=== PATIENT | female | born 1950 | race Caucasian/White ===

== ENCOUNTER → 2018-08-21 12:43 | Outpatient (BNVA) | payer OTHER, SELFPAY | PROVIDERS: PCP General Practice; Visit Provider Psychiatry & Neurology Neurology | DX: G40.009 Localization-related (focal) (partial) idiopathic epilepsy and epileptic syndromes with seizures of localized onset, not intractable, without status epilepticus (principal); I10 Essential (primary) hypertension | CPT/HCPCS: 99213 ==

== ENCOUNTER 2018-11-05 00:58 | Outpatient (CLI) | payer OTHER, SELFPAY ==
--- NOTE | 2018-11-05 12:27 | DI.MAMMO_ITS ---
SYMPTOM/DIAGNOSIS: SCREENING, Z12.31 MAMMOGRAMS: Mammograms were interpreted according to the usual protocol including computer analysis with CAD system, tomosynthesis and C view imaging. Comparison is made with prior examinations. Breast density, Category B. No suspicious masses or microcalcifications are seen. The well circumscribed nodules in the lower inner quadrant of the right breast are stable. The skin and axilla are unremarkable. IMPRESSION: No evidence for malignancy. Yearly mammography is recommended. Category 2. MQSA ASSESSMENT OF FINDINGS: Negative with benign findings. Category 2. Patient will receive a letter notifying them of these results. BI-RADS category B. There are scattered areas of fibroglandular density.
== END 2018-11-05 01:18 ==
PROVIDERS: PCP General Practice; Visit Provider Nurse Practitioner Family
DX: Z12.31 Encounter for screening mammogram for malignant neoplasm of breast (principal)
CPT/HCPCS: 77063; 77067

== ENCOUNTER 2018-12-14 02:00 | Outpatient (CLI) | payer OTHER, SELFPAY ==
[2018-12-14 11:05] LABS: HCT 41.5 % (36.0-46.0); HGB 14.4 g/dL (12.0-15.5); Mean Corp. HGB Concentration 34.7 g/dL (32.0-36.0); Mean Platelet Volume 10.2 fL (8.0-11.0); Platelet Count 158 x1000/uL (130-400); RBC 4.37 m/cumm (4.00-5.20); RBC Distribution Width 12.1 % (11.7-14.6); White Blood Cell Count 3.73 k/cumm (4.4-10.8)
[2018-12-14 11:17] LABS: Anion Gap 6.3 mmol/L (3-11); BUN 12 mg/dL (7-18); CO2 33.7 mmol/L (21.0-32.0); CREATININE 0.64 mg/dL (0.55-1.02); Chloride 98 mmol/L (98-107); Glucose 97 mg/dL (70-100); Potassium 4.1 mmol/L (3.5-5.1); Sodium 138 mmol/L (136-145)
== END 2018-12-14 02:20 ==
PROVIDERS: PCP Nurse Practitioner Family; Visit Provider General Practice
DX: I10 Essential (primary) hypertension (principal); R73.03 Prediabetes; D61.818 Other pancytopenia; E87.6 Hypokalemia
CPT/HCPCS: 36415; 80051; 82947; 84520; 85027; 82565

== ENCOUNTER 2019-11-11 00:54 | Outpatient (CLI) | payer OTHER, SELFPAY ==
--- NOTE | 2019-11-11 11:30 | DI.MAMMO_ITS ---
EXAM: MAMMO SCREENING CLINICAL HISTORY: SCREENING Z12.39 TECHNIQUE: Mammograms were interpreted according to the usual protocol including computer analysis w [employer] system, tomosynthesis and C-view imaging. COMPARISON: Current examination is compared with previous examinations including October 2018 FINDINGS: The breasts are of moderate density with fairly symmetrical distribution of fibroglandular tissue. N o dominant mass or clumped microcalcification is identified in either breast. Current examination is compared with previous examinations including October 2018 and there has been no gross interval morales nge in appearance in comparison with the previous studies. IMPRESSION: No specific evidence of malignancy at this time. Routine screening examinations are suggested yearly intervals in this age group according to the ACS/ACR guidelines. Category 1, breast density categor y B. BI-RADS Cat 1 - Negative Breast Density - Category B - Scattered areas of fibroglandular density
== END 2019-11-11 01:14 ==
PROVIDERS: PCP Nurse Practitioner Family; Visit Provider Nurse Practitioner Family
DX: Z12.31 Encounter for screening mammogram for malignant neoplasm of breast (principal)
CPT/HCPCS: 77063; 77067

== ENCOUNTER 2019-11-26 15:33 | Outpatient (CLI) | payer OTHER, SELFPAY ==
[2019-11-26 16:16] LABS: HCT 40.1 % (36.0-46.0); Mean Corp. HGB Concentration 34.9 g/dL (32.0-36.0); Mean Corpuscular Hemoglobin 33.3 pg (27.0-33.0); Mean Corpuscular Volume 95.5 fL (80-95); Mean Platelet Volume 9.5 fL (8.0-11.0); Platelet Count 154 x1000/uL (130-400); RBC Distribution Width 11.8 % (11.7-14.6); White Blood Cell Count 2.71 k/cumm (4.4-10.8)
[2019-11-26 18:11] LABS: ALT 32 U/L (14-59); AST 37 U/L (15-37); Cholesterol 204 mg/dL (<200); Triglyceride 59 mg/dL (<150)
== END 2019-11-26 15:53 ==
PROVIDERS: PCP Nurse Practitioner Family; Visit Provider Dermatology
DX: L40.0 Psoriasis vulgaris (principal); Z79.899 Other long term (current) drug therapy
CPT/HCPCS: 36415; 85027; 82465; 84450; 84460; 84478

== ENCOUNTER 2020-02-13 10:22 | Outpatient (REF) | payer OTHER, SELFPAY ==
[2020-02-13 15:54] LABS: ALT 31 U/L (14-59); AST 36 U/L (15-37); Albumin 3.5 g/dL (3.4-5.0); Alkaline Phosphatase 91 U/L (46-116); Anion Gap 4.9 mmol/L (3-11); BUN 19 mg/dL (7-18); Bilirubin, Total 0.6 mg/dL (0.2-1.0); CO2 33.1 mmol/L (21.0-32.0); CREATININE 0.95 mg/dL (0.55-1.02); Calcium 8.8 mg/dL (8.5-10.1); Chloride 96 mmol/L (98-107); Glucose 128 mg/dL (74-106); Potassium 3.8 mmol/L (3.5-5.1); Sodium 134 mmol/L (136-145)
== END 2020-02-13 10:42 ==
LOC: NCHCN 10:22
PROVIDERS: PCP Nurse Practitioner Family; Visit Provider Nurse Practitioner
DX: I10 Essential (primary) hypertension (principal)
CPT/HCPCS: 80053

== ENCOUNTER 2020-03-26 01:18 | Outpatient (CLI) | payer OTHER, SELFPAY ==
[2020-03-26 12:08] LABS: HCT 41.4 % (36.0-46.0); HGB 14.3 g/dL (12.0-15.5); Mean Corp. HGB Concentration 34.5 g/dL (32.0-36.0); Mean Corpuscular Hemoglobin 32.6 pg (27.0-33.0); Mean Corpuscular Volume 94.3 fL (80-95); Platelet Count 160 x1000/uL (130-400); RBC 4.39 m/cumm (4.00-5.20); RBC Distribution Width 12.3 % (11.7-14.6); White Blood Cell Count 3.35 k/cumm (4.4-10.8)
[2020-03-26 13:14] LABS: ALT 34 U/L (14-59); AST 38 U/L (15-37)
[2020-03-26 13:16] LABS: Cholesterol 192 mg/dL (<200); Triglyceride 78 mg/dL (<150)
== END 2020-03-26 01:38 ==
PROVIDERS: PCP Nurse Practitioner; Visit Provider Dermatology
DX: L40.0 Psoriasis vulgaris (principal); Z79.899 Other long term (current) drug therapy
CPT/HCPCS: 36415; 85027; 82465; 84450; 84460; 84478

== ENCOUNTER 2021-02-09 03:38 | Outpatient (CLI) | payer OTHER, SELFPAY ==
[2021-02-15 11:59] LABS: TB Interpretation Negative (Negative); TB1 Ag minus Nil 0.06 IU/ml; TB2 Ag minus Nil 0.03 IU/mL
== END 2021-02-09 03:39 | disposition home or self-care (01) ==
LOC: LBO 03:38
PROVIDERS: PCP Nurse Practitioner; Visit Provider Dermatology
DX: L40.0 Psoriasis vulgaris (principal); Z79.899 Other long term (current) drug therapy; Z11.1 Encounter for screening for respiratory tuberculosis
CPT/HCPCS: 36415; 86480

== ENCOUNTER 2021-03-02 15:05 | Emergency (ER) | payer OTHER, SELFPAY ==
--- NOTE | 2021-03-02 15:08 | W.ED.GENAD ---
Discharge Plan Disposition Patient Disposition: HOME Condition: Stable Discharge Details Clinical Impression: Rash, Psoriasis-like skin disease Primary Care Provider: Stormy Vides ED Provider: Brittni Lee Home Meds and New Rx's Prescriptions: New prednisone 20 mg tablet See Rx Instructions .ROUTE .COMPLEX Qty: 18 RF: 0 cephalexin 500 mg capsule 500 mg PO TID 7 Days Qty: 21 RF: 0 Continued hydrochlorothiazide 12.5 mg capsule 12.5 mg PO DAILY Qty: 30 RF: 1 calcium carbonate-vitamin D3 1 EACH tablet 1 ea PO DAILY RF: 0 multivitamin 1 EACH tablet 1 ea PO DAILY RF: 0 aspirin 81 MG tablet,delayed release (DR/EC) 81 mg PO DAILY RF: 0 Discharge Instructions Instructions: Psoriasis (ED) Additional Instructions: Continue your regular treatments that you are using for your psoriasis as directed. Your antibiotic and steroid prescriptions has been sent electronically to your pharmacy. Call the pharmacy to make sure your prescriptions are ready before pickup. Take the prescriptions as directed. Call Dr. Osborn's office tomorrow morning to discuss if he is okay with you taking a short course of steroids and antibiotics. Follow-up with dermatology for reevaluation. Return immediately to the emergency department if you develop any worsening or new concerning symptoms. Discharge Data Discharge Date/Time-TO BE ENTERED AT DEPARTURE: 03/02/21 16:25 Discharge Physician: Brittni Lee Medical Decision Making 70-year-old female with a history of lupus and diagnosed with psoriasis to her legs 1 year ago followed by dermatology with multiple recent treatment regimens currently on Cosentyx injections presents with continued pain in both legs and pain with ambulation for the past several months. Patient has excoriated raw appearing tissue with surrounding flaky scaly lesions to bilateral lower legs. She states this is unchanged for the past 2 months. She appears comfortable and nontoxic. Discussed with patient that I do not see an indication for labs or imaging at this time as this has been chronic for several months. I discussed that it is advisable to rest and elevate her legs as much as possible and to stay hydrated. She may benefit from a short course of oral steroids and antibiotics. She states her follow-up appointment with Dr. Osborn is in April. She states she feels she does want a second opinion. She states she plans to call Dr. Alcantara occupational therapy supervisor at [facility] for another opinion. Patient's niece had inquired whether lab work or admission to the hospital would be warranted. I discussed that as patient is well-appearing and is being followed by her pcp and occupational therapy supervisor with continuing treatments for her psoriasis, lab work would not change the treatment plan at this time. As she is nontoxic, able to ambulate, there is no indication for admission to the hospital at this time and she understands. She has an appointment with her primary care doctor next week. Usual and customary return precautions given prior to discharge. Medical Records Medical records reviewed: Yes I reviewed the patient's medical records. HPI General Mode of arrival: ambulatory. Date/Time Provider Initiated Documentation: 03/02/21 15:07. Limitations to Documentation: no limitations. Information obtained by: patient. HPI Narrative: Pt is a 70yo F who presents to the ED w/ a c/o rash to her bilateral legs for the past year. Patient states she has been followed by Dr. Osborn for this and was diagnosed with psoriasis and has had multiple treatment regimens including Humira among others, without relief and has recently started Cosentyx injections 2 weeks ago. She states she feels that the symptoms are not improving and she has continued pain and difficulty ambulating due to pain. She states she last saw Dr. Osborn in the past couple months and states her symptoms have not changed significantly since then. She states her legs looked exactly as they do today on her last visit with him and this is when he recommended Cosentyx injections. She denies fever. Related Data Home Medications Medication Instructions Recorded Confirmed calcium carbonate-vitamin D3 1 ea PO DAILY 10/22/13 03/02/21 multivitamin 1 ea PO DAILY 06/20/17 03/02/21 aspirin 81 mg PO DAILY tab-cap 10/30/17 03/02/21 hydrochlorothiazide 12.5 mg capsule 12.5 mg PO DAILY #30 tab-cap 11/11/19 03/02/21 cephalexin 500 mg PO TID 7 Days #21 cap 03/02/21 prednisone See Rx Instructions .ROUTE 03/02/21 .COMPLEX #18 tab Previous Rx's Medication Instructions Recorded hydrochlorothiazide 12.5 mg capsule 12.5 mg PO DAILY #30 tab-cap 11/11/19 cephalexin 500 mg PO TID 7 Days #21 cap 03/02/21 prednisone See Rx Instructions .ROUTE 03/02/21 .COMPLEX #18 tab Allergies Allergy/AdvReac Type Severity Reaction Status Date / Time No Known Drug Allergies Allergy Verified 03/02/21 15:16 Review of Systems All systems reviewed & are unremarkable except as noted in HPI and below Constitutional Constitutional: Reports as per HPI, Denies chills and Denies fever(s) Eyes Eyes: Denies blurry vision ENT Ears, Nose, Mouth, and Throat: Denies dizziness, Denies sore throat and Denies throat swelling Cardiovascular Cardiovascular: Denies chest pain and Denies dyspnea Respiratory Respiratory: Denies cough and Denies dyspnea Gastrointestinal Gastrointestinal: Denies abdominal pain, Denies diarrhea and Denies vomiting Genitourinary Genitourinary: Denies hematuria and Denies dysuria Musculoskeletal Musculoskeletal: Denies back pain and Denies numbness Integumentary/Breasts Skin/Breast: Reports lesions and Reports rash Neurologic Neurologic: Denies dizziness, Denies localized weakness and Denies numbness Allergic/Immunologic Allergic/Immunologic: Denies throat swelling [facility] Medical History (Updated 03/02/21 @ 15:44 by Brittni Lee DO) Discoid lupus erythematosus Eczema (10/23/12) Endometriosis Good hypertension control Hypertension (10/23/12) 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) Partial idiopathic epilepsy with seizures of localized onset, not intractable, without status epilepticus (07/19/17) Surgical History Colonoscopy 2009 Diagnostic Laproscopy secondary to endometriosis 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 Family History Mother Personal history of malignant neoplasm ovarian Father Pulmonary tuberculosis Diabetes Social History (Updated 08/21/18 @ 13:01 by Gabbie Mcconnell LPN) Smoking/Tobacco Use Status: Former Tobacco Use Smoking risk assessment performed?: Yes Alcohol Intake: former Drug use: Never Substance use type: does not use Household members: spouse Do you feel safe at home: Yes History History 0 Para Hx # Term Pregnancies Multiple births Hx # Pregnancies Ectopic pregnancies AB induced Hx Number of Living Children AB spontaneous Exam Const General: cooperative, healthy appearing and no acute distress HENMT Head: normal to inspection Face and sinus: normal facial exam Eyes General: appearance normal, both eyes and all related structures EOM: EOM intact bilaterally Neck Neck: normal visual inspection and No submandibular swelling Lymphatic: no lymphadenopathy noted Chest Chest: normal inspection of the chest and no tenderness Resp Effort & Inspection: normal respiratory effort and able to speak in complete sentences Auscultation: clear to auscultation bilaterally Cardio Rate: regular rate Rhythm: regular rhythm GI Inspection: normal to inspection Palpation: soft, not firm, not rigid and nontender Auscultation: normal bowel sounds Skin Other: Multiple large, white, dried, flaky scales surrounding raw appearing excoriated erythematous and pink tissue noted extensively to b/l lower legs. There are some oozing areas. Neuro General: patient alert, patient awake and patient oriented x3 Cognition: normal cognition Speech: speech normal Motor: muscle tone normal throughout Sensory Exam: no sensory deficits noted Extrem General: normal to inspection, full ROM, capillary refill normal, no calf tenderness bilaterally and no edema Psych Appearance: grossly normal Mental Status: mental status grossly normal Speech and Movement: speech and movement normal Affect: normal affect
[2021-03-02 15:13] VITALS: BP 172/84; PULSE 109; RESP 22; TEMP 36.7; O2SAT 97
--- NOTE | 2021-03-02 20:44 | NUR.NOTE ---
Nursing Note: get appt for [facility] dr glynn for rash on leg 03/02/21
--- NOTE | 2021-03-04 10:56 | CMPROGNOTE_ITS ---
- If Service Date Differs Date of service: 03/04/21 Time of Service: 10:56 Care Management Progress Note Pooja is seen in the ED for a rash of her lower legs. At the request of ED provider, CM coordinates a referral to Dr. Otto Alcantara of [facility] to assist Pooja in obtaining an appointment for a re-evaluation.
== END 2021-03-02 16:25 | disposition home or self-care (01) ==
PROVIDERS: Emergency Provider Physician Assistant; PCP Nurse Practitioner
DX: R21 Rash and other nonspecific skin eruption (principal); L98.8 Other specified disorders of the skin and subcutaneous tissue
CPT/HCPCS: 99283

== ENCOUNTER 2021-03-09 09:38 | Outpatient (REF) | payer OTHER, SELFPAY ==
[2021-03-09 19:55] LABS: ALT 45 U/L (14-59); AST 28 U/L (15-37); Albumin 3.3 g/dL (3.4-5.0); Alkaline Phosphatase 75 U/L (46-116); Anion Gap 6.6 mmol/L (3-11); BUN 18 mg/dL (7-18); Bilirubin, Total 0.4 mg/dL (0.2-1.0); CO2 33.4 mmol/L (21.0-32.0); CREATININE 0.7 mg/dL (0.55-1.02); Calcium 9.4 mg/dL (8.5-10.1); Calculated LDL 114 mg/dL (<100); Chloride 98 mmol/L (98-107); Cholesterol 204 mg/dL (<200); Glucose 114 mg/dL (74-106); HDL Cholesterol 77 mg/dL (40-60); Potassium 3.8 mmol/L (3.5-5.1); Sodium 138 mmol/L (136-145); Total Protein 7.1 g/dL (6.4-8.2); Triglyceride 66 mg/dL (<150)
[2021-03-09 20:17] LABS: Hemoglobin A1C 5.9 % (<5.7)
== END 2021-03-09 09:39 | disposition home or self-care (01) ==
LOC: NCHCN 09:38
PROVIDERS: PCP Nurse Practitioner; Visit Provider Nurse Practitioner
DX: R73.03 Prediabetes (principal); I10 Essential (primary) hypertension
CPT/HCPCS: 80053; 80061; 83036

== ENCOUNTER 2021-08-19 00:47 | Outpatient (CLI) | payer MEDICARE, SELFPAY ==
--- NOTE | 2021-08-19 12:00 | DI.MAMMO_ITS ---
Exam(s) MAMMO SCREENING EXAM: MAMMO SCREENING CLINICAL HISTORY: SCREENING MAMMO FOR BREAST CANCER Z12.39. TECHNIQUE: Bilateral full field digital CC and MLO mammographic images were obtained with 3D tomosyn thesis and utilizing computer aided detection (CAD). COMPARISON: Prior mammograms dating back to 2012, the most recent being October 2019. FINDINGS: There are no CAD designations. Asymmetric density in the right breast located 5 cm in from the nipple is unchanged from at least 101 5 and therefore benign This is a slightly lobulated nodule with a single microcalcifications therein. It measures approxima tely 8 x 3 millimeters. I suspect that it is probably a benign fibroadenoma, given its lack of hoang e from 2013. There is no significant architectural distortion nor skin thickening-retraction. IMPRESSION: Stable benign-appearing findings. No radiographic evidence of malignancy. BI-RADS Category 2 - Benign Findings Breast Density - Category B - Scattered areas of fibroglandular density Breast density Category C or D implies that the patient has dense breast tissue. Dense breast tissue can make it harder to find cancer on a mammogram. Dense breast tissue is also associated with an incr eased risk of breast cancer. This information about the result of the mammogram report was provided to the patient to raise their awareness. Use this report when you speak with the patient about their risks for breast cancer, which includes their family history. At that time, you may recommend additional screening tests (Ultrasoun d or MRI) as these tests may add significant information. A negative radiographic report should not delay biopsy if a dominant or clinically suspicious mass is present. Up to ten percent of cancers are not identified on mammography. A negative report may reinforce clinical impression. Adenosis and dense breasts may obscure an underlying neoplasm. False positive reports average 6 to 10%. Patient will receive a letter notifying them of these results.
== END 2021-08-19 01:07 ==
PROVIDERS: PCP Nurse Practitioner; Visit Provider Nurse Practitioner
DX: Z12.31 Encounter for screening mammogram for malignant neoplasm of breast (principal); R92.8 Other abnormal and inconclusive findings on diagnostic imaging of breast
CPT/HCPCS: 77063; 77067

== ENCOUNTER → 2021-09-30 10:56 | Outpatient (BNVA) | payer MEDICARE, SELFPAY | PROVIDERS: PCP Nurse Practitioner; Referring Provider Nurse Practitioner; Visit Provider Physical Therapy Assistant | DX: Z12.11 Encounter for screening for malignant neoplasm of colon (principal) ==

== ENCOUNTER 2021-10-08 01:37 | Outpatient (CLI) | payer MEDICARE, SELFPAY ==
[2021-10-08 11:10] LABS: Source Nasal/Nares
[2021-10-08 13:51] LABS: COVID-19 PCR Negative (Negative)
== END 2021-10-08 01:38 | disposition home or self-care (01) ==
LOC: LBO 01:37
PROVIDERS: PCP Family Medicine; Visit Provider Surgery
DX: Z20.822 Contact with and (suspected) exposure to COVID-19 (principal)
CPT/HCPCS: 87635

== ENCOUNTER 2021-10-11 07:01 | Day surgery (SDC) | payer MEDICARE, SELFPAY ==
--- NOTE | 2021-10-11 06:42 | PDOC.DSDIS_ITS ---
Discharge Plan Disposition Patient Disposition: HOME Condition: Good Discharge Details Reason For Visit: Colonoscopy Attending Provider: Marija Dodson Primary Care Provider: YURI ESCALANTE Home Meds and New Rx's Prescriptions: Continued hydrochlorothiazide 12.5 mg capsule 25 mg PO DAILY Qty: 30 RF: 1 aspirin 81 MG tablet,delayed release (DR/EC) 81 mg PO DAILY RF: 0 Cosentyx 150 mg/mL syringe 300 mg subcut Q4W RF: 0 One-A-Day Women's 50 Plus 400-20 mcg tablet 1 tab PO DAILY RF: 0 clobetasol 0.05 % cream 1 applic topical BID RF: 0 Discontinued bisacodyl [Dulcolax (bisacodyl)] 5 mg tablet,delayed release (DR/EC) 5 mg PO ONCE Qty: 4 RF: 0 polyethylene glycol 3350 17 gram/dose powder 17 g PO ONCE Qty: 238 RF: 0 Discharge Instructions Additional Instructions: Findings: Normal colon Follow up: as needed Please call if you develop: fevers >101.5 Nausea or Vomiting Abdominal pain that is not transient Rectal bleeding that is more then a tbsp A hard abdomen and inability to pass gas DAY SURGERY UNIT POST ENDOSCOPY INSTRUCTIONS Instructions for everyone who is given Anesthesia: For your safety, please do the following for the next 24 Hours: a. Do not drive or operate dangerous equipment b. Do not drink alcohol beverages or use any recreational drugs for the first 24 hours or while taking pain medications. The medications in your body may have a reaction that can be dangerous. c. Do not make any important decisions or sign any important papers 1. Generally there are no restrictions on your activity after a day or so has gone by, but you may feel a bit fatigued for a few days. 2. After you arrive home you may have a light meal and return to a normal diet as you can tolerate it without feeling sick to your stomach. 3. After surgery, you may feel pain or discomfort. This should be only arevalo sient, but if it persists please contact your doctor. 4. If there are any questions regarding the findings of your procedure, please feel free to contact your doctor. 6. If you are unable to contact your doctor with a problem, contact the hospital at [phone]. 7. Continue all your regular medications unless directed otherwise. I understand the above instructions and have no questions. Signature of Patient or Responsible Adult Escort Date/Time Name of Responsible Adult Escort Signature of Nurse Date/Time Activity:: Activity as Tolerated Diet:: As Tolerated Discharge Orders Discharge Orders: Discharge Order (Routine); Ordered 10/11/21 Ordered By: Marija Dodson
--- NOTE | 2021-10-11 06:42 | W.COLOREPORT ---
Colonoscopy Report Date of procedure: 10/11/21 Pre-op diagnosis general: Colon Cancer Screening Post-op diagnosis procedure note: same Procedure: Colonoscopy Surgeon: Marija Dodson Anesthesia Type: General:No Airway (Chris Tabares CRNA) Estimated blood loss (mL): 3 Pathology: none sent Complications: None Disposition: same day Indications: The patient is here for Colonoscopy pre-op. Her last screening was in 2009 and was unremarkable. She has no family history of colon cancer. She has not had any bowel habit changes. -Discussed colonoscopy bowel prep as well as the procedure. Discussed possible complications of the procedure to include bleeding, pain, perforation, missed small lesion/polyp, sore throat, aspiration and adverse reaction to the medications. Questions were answered to patient?s satisfaction. No guarantees were implied or given. Prep: Miralax/Dulcolax Procedure Start Time: 08:09 Procedure End Time: :24 Retraction Time: 6 minutes Findings: Normal colon Procedure Description: After informed consent was obtained the patient was taken to the procedure room and placed in a left decubitous position. Monitors were applied and a time out was done. The patients name, date of , procedure, allergies to medications and metal in their body was reviewed. The patient was then sedated. Once sedated and comfortable a rectal exam was done. External exam was normal. Internal exam revealed a normal sphincter tone and no palpable masses. The scope was then introduced and retro-flexed. No internal hemorrhoids, polyps or masses were identified on retro-flexion. The scope was then advanced to the cecum without difficulty. The ileocecal vlave and appendiceal orifice were identified. The prep was good. The scope was then slowly retracted over 6 minutes back into the rectum. There were no Polyps and there was no diverticulosis noted. The scope was removed and the patient was woken up and taken back to Same day surgery in stable condition. The patient tolerated the procedure well and there were no immediate complications. Follow up: The patient should follow up as needed, unless they develop changes in bowel habits or other new gastrointestinal complaints.
[2021-10-11 07:21] VITALS: BP 145/82; PULSE 83; RESP 16; TEMP 36.3; O2SAT 99
--- NOTE | 2021-10-11 07:38 | W.ANESPRE ---
General Info Date of Service Date Performed: 10/11/21 Height: 5 ft 2 in Weight: 64.9 kg Body Mass Index (BMI): 26.2 Surgical Procedure: Operation Date: 10/11/21 08:35 Proposed Procedures Side Surgeon p Colonoscopy Marija Dodson MD Meds Allergies and Home Medications Allergies Allergy/AdvReac Type Severity Reaction Status Date / Time No Known Drug Allergies Allergy Verified 10/11/21 07:17 Home Medication Medication Instructions Recorded aspirin 81 mg PO DAILY tab-cap 10/30/17 clobetasol 0.05 % topical cream 1 applic TOPICAL BID 04/13/21 kgjnqdqjztua-golsqjmq-wcvebup-folic 1 tab PO DAILY 04/13/21 acid 400 mcg-vit K1 20 mcg tablet secukinumab 150 mg/mL subcutaneous 300 mg SUBCUT Q4W 04/13/21 syringe hydrochlorothiazide 12.5 mg capsule 25 mg PO DAILY #30 tab-cap 09/24/21 bisacodyl 5 mg tablet,delayed 5 mg PO ONCE #4 tab 09/30/21 release polyethylene glycol 3350 17 17 g PO ONCE #238 g 09/30/21 gram/dose oral powder Current Visit Medications: Current Medications Generic Name Dose Route Start Last Admin Trade Name Freq PRN Reason Stop Dose Admin Hyoscyamine Sulfate 0.125 mg 10/11/21 06:43 Hyoscyamine 0.125 Mg Sl/Oral/Chew SL DIRECTED PRN Ringer's Solution 1,000 mls @ 80 mls/hr 10/11/21 06:00 IV 11/07/21 23:59 INF[facility]ION [facility] IV Miscellaneous Supplies 1 each 10/11/21 06:00 Iv Access IV 11/07/21 23:59 DIRECTED [facility] Ondansetron HCl 4 mg 10/11/21 06:43 Ondansetron 4 Mg/2 Ml Vial IVP Q4H PRN PRN Nausea / Vomiting Sodium Chloride 0 ml 10/11/21 06:00 Normal Saline Flush 10 Ml Syr IV 11/07/21 23:59 PRN PRN Sodium Chloride 0 ml 10/11/21 06:00 Normal Saline 10 Ml Vial IJ 11/07/21 23:59 DIRECTED PRN Sterile Water 0 ml 10/11/21 06:00 Water,Injection,Sterile 10 Ml Vial IJ 11/07/21 23:59 DIRECTED PRN PFSH Active Problems Active Problems: Problem Status Onset Code Prediabetes R73.03 Screening for colon cancer Z12.11 Partial idiopathic epilepsy with seizures of localized onset, not intractable, without status epilepticus 07/19/17 G40.009 Medical History Medical History Depression Eczema (10/23/12) Endometriosis Good hypertension control Hypertension (10/23/12) 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) Psoriasis-like skin disease Rash Surgical History Surgical History Colonoscopy 2010 Diagnostic Laproscopy secondary to endometriosis Lazer to L leg discoid lupus lesion 2010 Tobacco Smoking/Tobacco Use Status: Former Tobacco Use Alcohol Alcohol Intake: current Alcohol intake frequency: holidays/special occasions only Alcohol type: wine Substance Use Substance use: Never Substance use type: does not use Prental History History 0 Para Hx # Term Pregnancies Multiple births Hx # Pregnancies Ectopic pregnancies AB induced Hx Number of Living Children AB spontaneous Vital Signs and Lab Results Vital Signs Most Recent Vital Signs in EMR: Most Recent Vital Signs Temp Pulse Resp BP Pulse Ox 36.3 C L 83 16 145/82 H 99 10/11/21 07:21 10/11/21 07:21 10/11/21 07:21 10/11/21 07:21 10/11/21 07:21 Lab Results Blood Type / Crossmatch: No Data to Display Complete Blood Count: No Data to Display Complete Metabolic Panel: No Data to Display Liver Function Panel: No Data to Display Coagulation Panel: No Data to Display Cardiac Panel: No Data to Display Arterial Blood Gas: No Data to Display Venous Blood Gas: No Data to Display Pancreas Panel: No Data to Display Thyroid Panel: No Data to Display Infectious Disease: Coronavirus (COVID-19)(PCR) Negative (Negative) 10/08/21 09:23 10/08/21 Coronavirus 2019 Source Nasal/Nares 10/08/21 09:23 10/08/21 Blood Cultures: No Data to Display Toxicology Panel: No Data to Display Anesthesia Assessment and Plan Anesthesia History Personal History: No History of Anesthesia Complications Family History: No Family History of Anesthesia Complications Exercise Tolerance Exercise Tolerance: Metabolic Equivalents>4 Pertinent Negatives Pertinent Negatives: No Symptoms of GERD Cardiac & Pulmonary Exam Cardiac Exam: Normal S1/S2 Heart Sounds Pulmonary Exam: Clear Bilateral Breath Sounds Implantable Cardiac Device Does patient have a Pacemaker or an ICD?: No Airway Exam Known Difficult Airway: No Mallampati Class: 1 Mouth Opening: Normal (> 3cm) Thyromental Distance: Greater than 3 cm Neck Range of Motion: Full ROM Neck Circumference: Normal Teeth Condition: Loose or Chipped (Upper loose teeth, discussed possible loss) ASA Classification ASA Score: ASA 2 Emergency Case?: No NPO Status NPO Status: NPO Clears >2 hours, Solids >8 hours Anesthesia Plan Resuscitation Status: Full Code Anesthesia Technique: General Anesthesia Airway Planned: Natural Airway Monitors Used: Standard Monitors
[2021-10-11 07:53] VITALS: BMI 26.2
[2021-10-11] MEDS: Lactated Ringers 1,000 ML 80 ML IV (07:53)
[2021-10-11 08:29] VITALS: BP 99/62; PULSE 59; RESP 16; TEMP 36.3; O2SAT 98
--- NOTE | 2021-10-11 08:57 | W.ANESPOSTOP ---
Postoperative Evaluation Date, Time and Location Date Performed: 10/11/21 Time Performed: 08:57 Patient Location: Day Surgery Unit Vital Signs Most Recent Imported Vital Signs: Most Recent Vital Signs Temp Pulse Resp BP Pulse Ox 36.3 C L 59 L 16 99/62 L 98 10/11/21 08:29 10/11/21 08:29 10/11/21 08:29 10/11/21 08:29 10/11/21 08:29 Pain Score Most Recent Pain Score: Most Recent Pain Score Pain Level 0 10/11/21 08:29 Assessment Mental Status: Awake (Alert & Oriented to Patient Baseline) Airway and Respiratory Function: Patent airway with normal (patient baseline) respiratory exam Cardiovascular Function: Hemodynamically Stable Hydration Status: Adequately Hydrated Nausea & Vomiting: No Nausea or Vomiting Pain: Pt. Denies Any Pain Peripheral Nerve Block: Patient did not receive a nerve block
[2021-10-11 08:59] VITALS: BP 128/61; PULSE 58; RESP 16; TEMP 36.3; O2SAT 100
== END 2021-10-11 09:20 | disposition home or self-care (01) ==
PROVIDERS: PCP Nurse Practitioner Family; Visit Provider Surgery
PROC: 0DJD8ZZ Inspection of Lower Intestinal Tract, Via Natural or Artificial Opening Endoscopic (ICD-10-PCS; CPT 45378; principal; 2021-10-11 08:30)
DX: Z12.11 Encounter for screening for malignant neoplasm of colon (principal); I10 Essential (primary) hypertension; F32.A Depression, unspecified
CPT/HCPCS: G0121

== ENCOUNTER 2022-07-26 11:34 | Outpatient (REF) | payer MEDICARE, SELFPAY ==
[2022-07-26 15:46] LABS: Absolute Basophil Count 0.05 10^3/uL (0.0-0.2); Absolute Eosinophil Count 0.07 10^3/uL (0.0-0.7); Absolute Lymphocyte Count 0.55 10^3/uL (1.2-3.4); Anion Gap 4.9 mmol/L (3-11); BUN 16 mg/dL (7-18); Basophils % 1.2; CO2 34.1 mmol/L (21.0-32.0); CREATININE 0.7 mg/dL (0.55-1.02); Calcium 8.9 mg/dL (8.5-10.1); Chloride 94 mmol/L (98-107); Eosinophils % 1.6; Estimated GFR 92.41 (mL/min/1.73m2); Glucose 98 mg/dL (74-106); HCT 41.5 % (36.0-46.0); HGB 14.5 g/dL (11.2-15.7); Lymphocytes % 12.9; MCH 32.7 pg (27.0-33.0); MCHC 34.9 % (32.0-36.0); MCV 94 fL (80-95); MPV 10.2 fL (8.0-11.0); Monocytes % 9.4; Neutrophils % 74.9; Platelet Count 202 10^3/uL (130-400); Potassium 4.1 mmol/L (3.5-5.1); RBC 4.43 10^6/uL (3.93-5.22); RDW 11.7 % (11.7-14.6); Sodium 133 mmol/L (136-145); WBC 4.27 10^3/uL (4.4-10.8)
[2022-07-26 16:15] LABS: Hemoglobin A1C 5.5 % (<5.7)
== END 2022-07-26 11:35 | disposition home or self-care (01) ==
LOC: NCHCN 11:34
PROVIDERS: PCP Nurse Practitioner; Visit Provider Nurse Practitioner Family
DX: R73.03 Prediabetes (principal); L40.9 Psoriasis, unspecified; I10 Essential (primary) hypertension; Z00.00 Encounter for general adult medical examination without abnormal findings; Z51.81 Encounter for therapeutic drug level monitoring
CPT/HCPCS: 80048; 83036; 85025

== ENCOUNTER 2023-07-31 14:07 | Outpatient (REF) | payer MEDICARE, SELFPAY ==
[2023-07-31 16:00] LABS: ALT 36 U/L (14-59); AST 39 U/L (15-37); Albumin 3.4 g/dL (3.4-5.0); Alkaline Phosphatase 99 U/L (46-116); Anion Gap 7.3 mmol/L (3-11); BUN 12 mg/dL (7-18); Bilirubin, Total 0.8 mg/dL (0.2-1.0); CO2 31.7 mmol/L (21.0-32.0); CREATININE 0.7 mg/dL (0.55-1.02); Calcium 9.5 mg/dL (8.5-10.1); Calculated LDL 114 mg/dL (<100); Chloride 95 mmol/L (98-107); Cholesterol 204 mg/dL (<200); Estimated GFR 91.83 (mL/min/1.73m2); Glucose 126 mg/dL (74-106); HDL Cholesterol 78 mg/dL (40-60); Sodium 134 mmol/L (136-145); TSH (W/Ref FT4) 4.35 uIU/mL (0.36-3.74); Total Protein 7.6 g/dL (6.4-8.2); Triglyceride 60 mg/dL (<150); Vitamin B12 949 pg/mL (193-986)
[2023-07-31 16:34] LABS: FREE T4 0.94 ng/dL (0.76-1.46)
== END 2023-07-31 14:08 | disposition home or self-care (01) ==
LOC: NCHCN 14:07
PROVIDERS: PCP Nurse Practitioner; Visit Provider Nurse Practitioner Family
DX: I10 Essential (primary) hypertension (principal); R73.03 Prediabetes; Z79.899 Other long term (current) drug therapy
CPT/HCPCS: 80053; 80061; 82607; 84439; 84443

== ENCOUNTER → 2024-01-23 10:28 | Outpatient (BNVA) | payer MEDICARE, SELFPAY | PROVIDERS: PCP Nurse Practitioner Family; Referring Provider Nurse Practitioner Family; Visit Provider Podiatrist | DX: B35.1 Tinea unguium (principal); L60.2 Onychogryphosis; L60.3 Nail dystrophy; M79.676 Pain in unspecified toe(s); B07.0 Plantar wart; L84 Corns and callosities | CPT/HCPCS: 11305; 11721; 99214 ==

== ENCOUNTER → 2024-02-14 09:45 | Outpatient (BNVA) | payer MEDICARE, SELFPAY | PROVIDERS: PCP Nurse Practitioner Family; Referring Provider Nurse Practitioner Family; Visit Provider Podiatrist | DX: B35.1 Tinea unguium; L60.2 Onychogryphosis; L60.3 Nail dystrophy; L84 Corns and callosities | CPT/HCPCS: 99214 ==

== ENCOUNTER → 2024-05-28 10:28 | Outpatient (BNVA) | payer MEDICARE, SELFPAY | PROVIDERS: PCP Nurse Practitioner Family; Referring Provider Nurse Practitioner Family; Visit Provider Podiatrist | DX: B35.1 Tinea unguium (principal); L60.2 Onychogryphosis; L60.3 Nail dystrophy; M79.674 Pain in right toe(s); L84 Corns and callosities; L93.0 Discoid lupus erythematosus; I73.89 Other specified peripheral vascular diseases; M79.675 Pain in left toe(s) | CPT/HCPCS: 11721 ==

== ENCOUNTER 2024-06-05 17:33 | Emergency (ER) | payer MEDICARE, SELFPAY ==
[2024-06-05 17:35] VITALS: BP 163/80; PULSE 83; RESP 16; TEMP 36.4; O2SAT 98
--- NOTE | 2024-06-05 19:31 | ED.GENADUL_ITS ---
Discharge Plan Disposition Patient Disposition: Home Condition: Stable Discharge Details Clinical Impression: Paronychia of finger of left hand Primary Care Provider: YURI ESCALANTE ED Provider: Lucrecia Koch Home Meds and New Rx's Prescriptions: New cephalexin 500 mg capsule 500 mg PO BID 10 Days Qty: 20 0RF Rx Instructions: Take 1 tablet twice daily for the next 10 days. No Action hydrochlorothiazide 12.5 mg capsule 25 mg PO DAILY Qty: 30 1RF ketoconazole 2 % cream 1 applic topical DAILY Qty: 120 6RF Rx Instructions: Apply to toenails once daily folic acid 1 mg tablet 1 mg PO DAILY Cosentyx 150 mg/mL syringe 300 mg subcut Q4W Rx Instructions: start 4 wks after last weekly dose;inject [id number] doses each in different thigh/upper arm/abdominal areas One-A-Day Women's 50 Plus 400-20 mcg tablet 1 tab PO DAILY Discharge Instructions Instructions: Cellulitis (Skin Infection), Adult ED, Paronychia ED Additional Instructions: Please take the antibiotics as directed twice daily with yogurt or a probiotic. Continue with warm soapy water soaks once daily for the next 3 to 5 days. Keep clean and dry. Please be seen again for any worsening swelling, increased redness or return of the abscess after 3 days of the antibiotics. Follow up with urgent care or primary care provider in 3-5 days for a recheck. Return to ED sooner if any worsening or concerns. Please take Tylenol or Ibuprofen with food every 4-6 hours as needed for pain and swelling. Referrals: YURI ESCALANTE, HOTEL DESK CLERK [Primary Care Provider] - 1 week HPI General Mode of arrival: ambulatory . Date/Time Provider Initiated Documentation: 06/05/24 17:34 . Limitations to Documentation: no limitations . Information obtained by: patient, family, RN notes reviewed and old records reviewed . HPI Narrative: 74-year-old female presents to the ER with a chief complaint of left finger distal tip cellulitis with purulent drainage noted. Does appear to be a paronychia started 1 week ago and has been worsening. Denies any fever or chills. Does have some swelling noted and erythema. Past medical history includes depression, hypertension endometriosis. Related Data Home Medications ?Medication ?Instructions ?Recorded ?Confirmed [id number]-abpduhs-folic 1 tab PO DAILY 04/13/21 05/28/24 acid 400 mcg-vit K1 20 mcg tablet (One-A-Day Women's 50 Plus) secukinumab 150 mg/mL subcutaneous 300 mg subcut Q4W 04/13/21 05/28/24 syringe (Cosentyx) hydrochlorothiazide 12.5 mg capsule 25 mg (2 x 12.5 mg) PO DAILY #30 09/24/21 05/28/24 tab-caps ketoconazole 2 % topical cream 1 applic topical DAILY #120 grams 01/23/24 05/28/24 folic acid 1 mg tablet 1 mg PO DAILY 05/24/24 05/28/24 cephalexin 500 mg capsule 500 mg PO BID Finger Cellulits 06/05/24 days #20 caps Previous Rx's ?Medication ?Instructions ?Recorded hydrochlorothiazide 12.5 mg capsule 25 mg (2 x 12.5 mg) PO DAILY #30 09/24/21 tab-caps ketoconazole 2 % topical cream 1 applic topical DAILY #120 grams 01/23/24 cephalexin 500 mg capsule 500 mg PO BID Finger Cellulits 06/05/24 days #20 caps Allergies Allergy/AdvReac Type Severity Reaction Status Date / Time haloperidol (From Haldol) Allergy Severe Unknown Verified 06/05/24 17:39 lamotrigine (From Lamictal) Allergy Severe Unknown Verified 06/05/24 17:39 phenytoin (From Dilantin) Allergy Severe Unknown Verified 06/05/24 17:39 General Stated Complaint: Cellulitis AHSAN: 4 Review of Systems Musculoskeletal Musculoskeletal: Reports as per HPI, Reports arthralgias and Reports joint swelling Integumentary/Breasts Skin/Breast: Reports erythema, Reports skin pain and Reports skin swelling Exam Extrem Left upper extremity: hand Details: tenderness and swelling Hand/finger images: 2 1. Purulent drainage noted, surrounded by induration and erythema. Concentrated to the dorsal aspect of the finger. Course Vital Signs Vital signs: Vital Signs Temperature 36.4 C L 06/05/24 17:35 Pulse 83 06/05/24 17:35 Respiratory Rate 16 06/05/24 17:35 Blood Pressure 163/80 H 06/05/24 17:35 Pulse Oximetry 98 06/05/24 17:35 Temperature 36.4 C L 06/05/24 17:35 Temperature Source Temporal Artery Scan 06/05/24 17:35 Pulse 83 06/05/24 17:35 Respiratory Rate 16 06/05/24 17:35 Blood Pressure 163/80 H 06/05/24 17:35 Blood Pressure Position Sitting 06/05/24 17:35 Pulse Oximetry 98 06/05/24 17:35 Oxygen Delivery Method Room Air 06/05/24 17:35 Oxygen Flow Rate 0 06/05/24 17:35 Pain Level 3 06/05/24 17:35 Procedures Abscess I/D Site: Hand (Left index finger) Side (if applicable): Left Sedation/analgesia: None Technique: Needle Aspiration Amount of fluid expressed (mL): 1 Irrigation: No Packing used?: None Medical Decision Making 74-year-old female presents to the ER with a chief complaint of left finger distal tip cellulitis with purulent drainage noted. Does appear to be a paronychia started 1 week ago and has been worsening. Denies any fever or chills. Does have some swelling noted and erythema. Past medical history includes depression, hypertension endometriosis. Left finger paronychia, purulent drainage noted at the nailbed, puncture with 18-gauge needle and expressed moderate amount of purulent drainage. Patient tolerated well, will give cephalexin and instruct on continuing warm soapy water soaks and follow-up with urgent care here or PCP. Instructed to give the antibiotics get 3 days to return here if any worsening. This text was generated using [employer] system, please disregard any oddities of phrase or misspellings. Quality:SDOH Health Related Social Needs: 2 No Data to Display PFSH All Active Problems (Updated 06/05/24 @ 19:35 by Lucrecia Koch NP) Paronychia of finger of left hand (Acute) PVD (peripheral vascular disease) (Chronic) Eczema (Acute 10/23/12) Corns and callosities (Acute) Plantar verruca (Acute) Pain around toenail (Acute) Nail dystrophy (Acute) Onychogryphosis (Acute) Onychomycosis (Acute) Normal colonoscopy (Acute ~09/2021) Prediabetes (Acute) no ;longer an issue Partial idiopathic epilepsy with seizures of localized onset, not intractable, without status epilepticus (Acute 07/19/17) not since 2016 Medical History Depression Screening for colon cancer Psoriasis-like skin disease Rash 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) Hypertension (10/23/12) Endometriosis Good hypertension control Surgical History 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 Diagnostic Laproscopy secondary to endometriosis Colonoscopy 2021 2009 Family History Mother Personal history of malignant neoplasm ovarian Father Pulmonary tuberculosis Diabetes Social History Smoking/Tobacco Use Status: Former Tobacco Use Quit Date: 09/18/79 Smoking risk assessment performed?: Yes Alcohol Intake: current Alcohol Intake frequency: holidays/special occasions only Alcohol type: wine Drug use: Never Substance use type: does not use Household members: spouse Housing: house Do you feel safe at home: Yes Do you feel safe in your relationship?: Yes History History 2 0 Para Hx # Term Pregnancies Multiple births Hx # Pregnancies Ectopic pregnancies AB induced Hx Number of Living Children AB spontaneous
[2024-06-05] MEDS: Bacitracin 1 PACKET TP (19:38)
[2024-06-05] MEDS: Cephalexin 500 MG CAP, 2 CAPS/BTL PO (19:39)
[2024-06-05] MEDS: Cephalexin 500 MG CAP PO (19:39)
[2024-06-05 19:41] VITALS: BP 164/98; PULSE 81; RESP 16; TEMP 36.8; O2SAT 96
== END 2024-06-05 19:37 | disposition home or self-care (01) ==
PROVIDERS: Emergency Provider Registered Nurse Emergency; PCP Nurse Practitioner Family
DX: L03.012 Cellulitis of left finger (principal)
CPT/HCPCS: 10021; 10060; 99281; 99283

== ENCOUNTER 2024-09-23 10:27 | Emergency (ER) | payer MEDICARE, SELFPAY ==
[2024-09-23 10:36] VITALS: BP 148/77; PULSE 102; RESP 16; TEMP 37; O2SAT 97
[2024-09-23 11:50] VITALS: BP 136/86; PULSE 88; RESP 15; O2SAT 96
[2024-09-23 11:55] LABS: Influenza A PCR Negative (Negative); Influenza B PCR Negative (Negative); RSV PCR Negative (Negative)
[2024-09-23 12:01] LABS: COVID-19 PCR Positive (Negative); Source Nasopharynx
--- NOTE | 2024-09-23 12:10 | DI.RAD_ITS ---
Exam(s) XR CHEST 2V PA LATERAL EXAM: XR CHEST 2V PA LATERAL CLINICAL HISTORY: shortness of breath, cough TECHNIQUE: 2D digital imaging was performed of the chest. Two images were obtained. PA and lateral views were obtained. COMPARISON: CR PORTABLE CHEST ONE VIEW from 04/21/2017 FINDINGS: There is poor inspiration. MEDIASTINUM: Normal. HEART: Normal. PULMONARY VASCULATURE: Normal. LUNGS: Mild prominence of the interstitium throughout the lungs. No focal consolidating infiltrate is seen. PLEURAL SPACE: There is blunting of the right costophrenic angle which may represent a small pleural effusion. No left pleural effusion. No pneumothorax. BONE:Within normal limits for the patient's age. OTHER FINDINGS:Normal. IMPRESSION: Mild interstitial prominence. This may be chronic, but acute interstitial edema or pneumonia cannot b e excluded. Please correlate clinically. No focal consolidating infiltrates are seen. DATA REPOSITORY: RADIATION DOSE DELIVERED:
--- NOTE | 2024-09-24 09:05 | W.ED.GENAD ---
Discharge Plan Disposition Patient Disposition: Home Discharge Details Clinical Impression: COVID-19 Primary Care Provider: YURI ESCALANTE ED Provider: Saige James Home Meds and New Rx's Prescriptions: New doxycycline hyclate 100 mg tablet 100 mg PO BID 7 Days Qty: 14 0RF prednisone 20 mg tablet 40 mg PO ONCE Qty: 10 0RF Continued hydrochlorothiazide 12.5 mg capsule 25 mg PO DAILY Qty: 30 1RF ketoconazole 2 % cream 1 applic topical DAILY Qty: 120 6RF Rx Instructions: Apply to toenails once daily Cosentyx 150 mg/mL syringe 300 mg subcut Q4W Rx Instructions: start 4 wks after last weekly dose;inject [id number] doses each in different thigh/upper arm/abdominal areas One-A-Day Women's 50 Plus 400-20 mcg tablet 1 tab PO DAILY memantine 5 mg tablet 10 mg PO BID Patient Comments: 2 in morning, 1 at night Discharge Instructions Instructions: COVID-19 ED Additional Instructions: Take the antibiotics as prescribed Yogurt daily while on antibiotics Prednisone as prescribed Inhaler 2 puffs every 4-6 hours as needed for cough, wheeze, shortness of breath Please return with fever, chills, worsening symptoms You are positive for COVID-19, please refer to review information attached Referrals: YURI ESCALANTE, REAL ESTATE INVESTMENT ANALYST [Primary Care Provider] - 3 days Discharge Data Discharge Date/Time-TO BE ENTERED AT DEPARTURE: 09/23/24 12:55 HPI General Date/Time Provider Initiated Documentation: 09/23/24 10:31. HPI Narrative: This 74-year-old female with history of dementia presents with with report of cough and cold symptoms for the past 10 days. [place] and became sick shortly thereafter. Patient denies any chest pain has been does not endorse any fevers. There have been no falls patient is not weak her . She denies any specific complaints. They are more concerned regarding the longevity of illness. Related Data Home Medications ?Medication ?Instructions ?Recorded ?Confirmed [id number]-rkijqqcw-epqfosa-folic 1 tab PO DAILY 04/13/21 09/23/24 acid 400 mcg-vit K1 20 mcg tablet (One-A-Day Women's 50 Plus) secukinumab 150 mg/mL subcutaneous 300 mg subcut Q4W 04/13/21 09/23/24 syringe (Cosentyx) hydrochlorothiazide 12.5 mg capsule 25 mg (2 x 12.5 mg) PO DAILY #30 09/24/21 09/23/24 tab-caps ketoconazole 2 % topical cream 1 applic topical DAILY #120 grams 01/23/24 09/23/24 memantine 5 mg tablet 10 mg PO BID 09/09/24 09/23/24 doxycycline hyclate 100 mg tablet 100 mg PO BID 7 days #14 tabs 09/23/24 prednisone 20 mg tablet 40 mg (2 x 20 mg) PO ONCE #10 tabs 09/23/24 Previous Rx's ?Medication ?Instructions ?Recorded hydrochlorothiazide 12.5 mg capsule 25 mg (2 x 12.5 mg) PO DAILY #30 09/24/21 tab-caps ketoconazole 2 % topical cream 1 applic topical DAILY #120 grams 01/23/24 doxycycline hyclate 100 mg tablet 100 mg PO BID 7 days #14 tabs 09/23/24 prednisone 20 mg tablet 40 mg (2 x 20 mg) PO ONCE #10 tabs 09/23/24 General Stated Complaint: RespSymp AHSAN: 3 Exam Narrative Exam Narrative: Alert 74-year-old female in no acute distress, lungs clear to auscultation, cardiac rate rhythm regular, alert and following all basic commands, no peripheral edema Course Vital Signs Vital signs: Vital Signs Temperature 37.0 C 09/23/24 10:36 Pulse 102 H 09/23/24 10:36 Respiratory Rate 16 09/23/24 10:36 Blood Pressure 148/77 H 09/23/24 10:36 Pulse Oximetry 97 09/23/24 10:36 Temperature 37.0 C 09/23/24 10:36 Temperature Source Oral 09/23/24 10:36 Pulse 88 09/23/24 11:50 Respiratory Rate 15 09/23/24 11:50 Respiratory Effort Normal 09/23/24 10:57 Respiratory Depth Normal 09/23/24 10:57 Blood Pressure 136/86 09/23/24 11:50 Blood Pressure Position Sitting 09/23/24 10:36 Pulse Oximetry 96 09/23/24 11:50 Oxygen Delivery Method Room Air 09/23/24 11:50 Oxygen Flow Rate 0 09/23/24 11:50 Pain Level 5 09/23/24 10:36 Lab/Test Results Lab/Test Results: Laboratory Tests Range/Units 09/23/24 11:04 COVID-19 Source Nasopharynx SARS-CoV-2 (PCR) (Negative) Positive A Influenza Type A (PCR) (Negative) Negative Influenza Type B (PCR) (Negative) Negative RSV (PCR) (Negative) Negative Medical Decision Making 74-year-old female presenting in no acute distress. Chest x-ray and Fluvid were ordered for additional assessment and inhaler was initiated. Patient is COVID-positive, she is on day 10 and she is not hypoxic nor is she in any respiratory distress there is concern for possible developing infiltrate and we will initiate doxycycline and prednisone. They will also use inhaler. She will continue to quarantine as she is still symptomatic and return earlier should she have new or worsening complaints, discharged home in stable condition with stable vitals Quality:SDOH Health Related Social Needs: No Data to Display PFSH All Active Problems (Updated 09/23/24 @ 12:34 by MAURA Walters) COVID-19 (Acute) Concern about memory (Acute) PVD (peripheral vascular disease) (Chronic) Eczema (Acute 10/23/12) Corns and callosities (Acute) Plantar verruca (Acute) Pain around toenail (Acute) Nail dystrophy (Acute) Onychogryphosis (Acute) Onychomycosis (Acute) Normal colonoscopy (Acute ~09/2021) Prediabetes (Acute) no ;longer an issue Partial idiopathic epilepsy with seizures of localized onset, not intractable, without status epilepticus (Acute 07/19/17) not since 2016 Medical History Depression Screening for colon cancer Psoriasis-like skin disease Rash 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) Hypertension (10/23/12) Endometriosis Good hypertension control Surgical History 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 Diagnostic Laproscopy secondary to endometriosis Colonoscopy 2021 2009 Family History Mother Personal history of malignant neoplasm ovarian Father Pulmonary tuberculosis Diabetes Social History Smoking/Tobacco Use Status: Former Tobacco Use Quit Date: 09/18/79 Smoking risk assessment performed?: Yes Alcohol Intake: current Alcohol Intake frequency: holidays/special occasions only Alcohol type: wine Drug use: Never Substance use type: does not use Household members: spouse Housing: house Do you feel safe at home: Yes Do you feel safe in your relationship?: Yes Additional Social history: is caregiver History History 0 Para Hx # Term Pregnancies Multiple births Hx # Pregnancies Ectopic pregnancies AB induced Hx Number of Living Children AB spontaneous
== END 2024-09-23 12:55 | disposition home or self-care (01) ==
PROVIDERS: Emergency Provider Physician Assistant; PCP Nurse Practitioner Family
DX: U07.1 COVID-19 (principal)
CPT/HCPCS: 87637; 99283; 71046

== ENCOUNTER → 2024-10-01 10:27 | Outpatient (BNVA) | payer MEDICARE, SELFPAY | PROVIDERS: PCP Nurse Practitioner Family; Referring Provider Nurse Practitioner Family; Visit Provider Podiatrist | DX: L60.3 Nail dystrophy (principal); B35.1 Tinea unguium; L60.2 Onychogryphosis; M79.674 Pain in right toe(s); M79.675 Pain in left toe(s); L84 Corns and callosities; L93.0 Discoid lupus erythematosus; I73.89 Other specified peripheral vascular diseases; R60.0 Localized edema; R20.8 Other disturbances of skin sensation; L65.9 Nonscarring hair loss, unspecified; R23.8 Other skin changes; L53.8 Other specified erythematous conditions | CPT/HCPCS: 11721 ==

== ENCOUNTER → 2024-10-23 09:53 | Outpatient (BNVA) | payer MEDICARE, SELFPAY | PROVIDERS: PCP Nurse Practitioner Family; Referring Provider Nurse Practitioner Family; Visit Provider Nurse Practitioner Adult Health | DX: G30.9 Alzheimer's disease, unspecified (principal); F02.80 Dementia in other diseases classified elsewhere, unspecified severity, without behavioral disturbance, psychotic disturbance, mood disturbance, and anxiety | CPT/HCPCS: 99215 ==

== ENCOUNTER → 2025-02-18 10:54 | Outpatient (BNVA) | payer MEDICARE, SELFPAY | PROVIDERS: PCP Nurse Practitioner Family; Referring Provider Nurse Practitioner Family; Visit Provider Podiatrist | DX: L60.3 Nail dystrophy (principal); B35.1 Tinea unguium; L60.2 Onychogryphosis; L84 Corns and callosities; L93.0 Discoid lupus erythematosus; I73.89 Other specified peripheral vascular diseases; R60.0 Localized edema; R20.8 Other disturbances of skin sensation; L65.9 Nonscarring hair loss, unspecified; R23.8 Other skin changes; L60.8 Other nail disorders | CPT/HCPCS: 11721 ==